=== PATIENT | female | born 1960 | race Two or more races ===

== ENCOUNTER 2019-07-31 17:20 | Emergency (ER) | payer MEDICAID ==
[~2019-07-31] VITALS: Ht 165.1 cm; Wt 78.9 kg
[~2019-07-31 17:20] MED LIST: ALBUAER3 IN; ATEN-60 PO; LEVO500T21 PO
[2019-07-31 17:40] VITALS: BP 171/75
[2019-07-31] MEDS ORDERED: ACETAMINOPHEN 325 MG TAB PO ONE (19:30)
== END 2019-07-31 21:45 | disposition home or self-care (01) ==
LOC: ER 17:20
DX: S99.922A Unspecified injury of left foot, initial encounter (principal); S39.92XA Unspecified injury of lower back, initial encounter; M25.511 Pain in right shoulder; I10 Essential (primary) hypertension; E78.5 Hyperlipidemia, unspecified; K21.9 Gastro-esophageal reflux disease without esophagitis; Z79.899 Other long term (current) drug therapy; X58.XXXA Exposure to other specified factors, initial encounter; Y93.89 Activity, other specified; Y92.89 Other specified places as the place of occurrence of the external cause; Y99.8 Other external cause status
CPT/HCPCS: 73030; 73610; 73630

== ENCOUNTER 2020-12-13 10:18 | Emergency (ER) | payer MEDICAID ==
[~2020-12-13] VITALS: Ht 165.1 cm; Wt 74.8 kg
[~2020-12-13 10:18] MED LIST changes: -LEVO500T21 PO; +LEVO500T31 PO
[2020-12-13 10:58] LABS: Basophils # (auto) 0 10 ^3/uL (0-0.2); Basophils % (auto) 0.6 % (0.0-2.0); Eosinophils # (auto) 0 10 ^3/uL (0-0.8); Lymphocytes # (auto) 1.8 10 ^3/uL (0.4-5.4)
[2020-12-13 10:59] LABS: Hematocrit 36.5 % (36.0-46.0); Hemoglobin 11.3 g/dL (12.2-16.2); Lymphocytes % (auto) 24.3 % (10.0-50.0); Mean Corpuscular Hemoglobin 20.8 pg (28.0-32.0); Mean Corpuscular Volume 67.1 fL (80.0-100.0); Monocytes # (auto) 0.4 10 ^3/uL (0-1.3); Monocytes % (auto) 6.2 % (0.0-12.0); Neutrophils % (auto) 68.9 % (37.0-80.0); Nucleated Red Blood Cells % 0.2 %; Red Blood Cells 5.44 10^6/uL (4.0-5.20); Red Cell Distribution Width 17.9 % (11.8-14.3); White Blood Cell 7.2 10^3/uL (4.4-10.8)
[2020-12-13 11:17] LABS: Albumin 3.4 g/dL (3.4-5.0); Calcium 8.7 mg/dL (8.5-10.1); Potassium 3.3 mmol/L (3.5-5.1)
[2020-12-13 11:23] LABS: BUN/Creatinine Ratio 12.3; Bilirubin, Total 0.2 mg/dL (0.2-1.0); Total Protein 8.1 g/dL (6.4-8.2)
[2020-12-13 12:26] VITALS: BP 126/67
[2020-12-13] MEDS ORDERED: POTASSIUM CHL 20 Meq TABLET PO ONE (14:15)
[2020-12-13] MEDS ORDERED: ACETAMINOPHEN 325 MG TAB PO ONE (14:15)
== END 2020-12-13 15:55 | disposition home or self-care (01) ==
LOC: ER 10:18
DX: U07.1 COVID-19 (principal); J06.9 Acute upper respiratory infection, unspecified; E86.0 Dehydration; J45.909 Unspecified asthma, uncomplicated; K21.9 Gastro-esophageal reflux disease without esophagitis; E78.5 Hyperlipidemia, unspecified; I10 Essential (primary) hypertension; Z79.2 Long term (current) use of antibiotics; Z79.899 Other long term (current) drug therapy
CPT/HCPCS: 36415; 71046; 80053; 83880; 84484; 85025; 85379; 93005

== ENCOUNTER 2021-03-03 17:38 | Observation (INO) | payer MEDICAID ==
[~2021-03-03] VITALS: Ht 165.1 cm; Wt 70.7 kg
[2021-03-03 23:59] LABS: Basophils # (auto) 0.1 10 ^3/uL (0-0.2); Eosinophils # (auto) 0.1 10 ^3/uL (0-0.8); Hematocrit 37.6 % (36.0-46.0); Hemoglobin 11.9 g/dL (12.2-16.2)
[2021-03-04] LABS: Basophils % (auto) 0.7 % (0.0-2.0); Eosinophils % (auto) 0.6 % (0.0-7.0); Lymphocytes # (auto) 2.1 10 ^3/uL (0.4-5.4); Lymphocytes % (auto) 21.5 % (10.0-50.0); Mean Corpuscular Hemoglobin 23.2 pg (28.0-32.0); Mean Corpuscular Hgb Conc. 31.7 g/dL (32.0-36.0); Mean Corpuscular Volume 73.2 fL (80.0-100.0); Monocytes # (auto) 1.1 10 ^3/uL (0-1.3); Monocytes % (auto) 10.6 % (0.0-12.0); Neutrophils # (auto) 6.6 10 ^3/uL (1.6-8.6); Neutrophils % (auto) 66.6 % (37.0-80.0); Nucleated Red Blood Cells % 0.1 %; Red Blood Cells 5.13 10^6/uL (4.0-5.20)
[2021-03-04 00:18] LABS: Red Cell Distribution Width 22.1 % (11.8-14.3)
[2021-03-04 00:21] LABS: Albumin 3.4 g/dL (3.4-5.0); Calcium 8.8 mg/dL (8.5-10.1); Potassium 3.5 mmol/L (3.5-5.1)
[2021-03-04 00:27] LABS: BUN/Creatinine Ratio 19.3; Bilirubin, Total 0.3 mg/dL (0.2-1.0); Total Protein 7.9 g/dL (6.4-8.2)
[2021-03-04] MEDS ORDERED: ASPirin 325 MG TAB PO ONE (01:15)
[2021-03-04] MEDS ORDERED: SODIUM CHLORIDE 0.9% 1,000 ML IV ONE (04:15)
[2021-03-04] MEDS ORDERED: NITROGLYCERIN 0.4 MG SL TAB SL PRN (04:15)
[2021-03-04] MEDS ORDERED: ONDANSETRON HCL 4 MG/2 ML VIAL IV PRN (04:15)
[2021-03-04] MEDS ORDERED: ALBUTEROL SULF 2.5 MG/0.5ML(0.5%) NEB SOLN NEB PRN (04:15)
[2021-03-04 04:22] LABS: Urine Bacteria FEW /hpf (None Seen); Urine Blood TRACE /uL (Negative); Urine Hyaline Cast FEW /lpf (0 - 2); Urine Mucus FEW (None Seen); Urine WBC 13 /hpf (0 - 5)
[2021-03-04] MEDS: MORPHINE SULFATE INJECTION 2 MG/ML SYRG IV PRN ×2 (04:33→10:31)
[2021-03-04 05:16] LABS: Calcium 8.7 mg/dL (8.5-10.1); Potassium 3.7 mmol/L (3.5-5.1)
[2021-03-04 05:21] LABS: BUN/Creatinine Ratio 20.8
[2021-03-04] MEDS ORDERED: ENOXAPARIN SOD 40 MG/0.4 ML SYRINGE SC SCH (10:00)
[2021-03-04 17:51] VITALS: BP 138/95
[2021-03-04] MEDS ORDERED: HYDROcodone-ACET 5/325MG TAB PO PRN (18:00)
[2021-03-04] MEDS ORDERED: ACETAMINOPHEN 325 MG TAB PO PRN (18:00)
[2021-03-04] MEDS ORDERED: ATORVASTATIN 20 MG TAB PO SCH (22:00)
== END 2021-03-04 21:05 | disposition home or self-care (01) ==
LOC: ER 17:38 → TELE 03-04 04:12 → TELE-WESTW 03-04 16:35
PROVIDERS: ADMIT Hospitalist; ATTEND Hospitalist
DX: R07.89 Other chest pain (principal); Z20.822 Contact with and (suspected) exposure to COVID-19; R11.2 Nausea with vomiting, unspecified; R10.9 Unspecified abdominal pain; I10 Essential (primary) hypertension; J45.909 Unspecified asthma, uncomplicated; K21.9 Gastro-esophageal reflux disease without esophagitis; E78.5 Hyperlipidemia, unspecified; Z79.899 Other long term (current) drug therapy
CPT/HCPCS: 36415; 71045; 80048; 80053; 80061; 81001; 83880; 84484; 85025; 87426; 93005; 93306; 96361; 96372; 96374; 96375; 96376; 99285; G0378; J1650; J2270; J2405; J7030

== ENCOUNTER 2021-07-12 01:20 | Emergency (ER) | payer OTHER, MEDICAID ==
[~2021-07-12] VITALS: Ht 165.1 cm; Wt 71.7 kg
[2021-07-12 01:20] VITALS: BP 144/79
[~2021-07-12 01:20] MED LIST changes: -LEVO500T31 PO
[2021-07-12] MEDS ORDERED: KETOROLAC TROMETH 60MG/2ML VIAL IM ONE (04:00)
[2021-07-12] MEDS ORDERED: AMOX250C3 PO (04:43)
== END 2021-07-12 04:44 | disposition left against medical advice (07) ==
LOC: ER 01:20
DX: R51.9 Headache, unspecified (principal); J32.9 Chronic sinusitis, unspecified; I10 Essential (primary) hypertension; E78.5 Hyperlipidemia, unspecified; Z98.51 Tubal ligation status; Z88.6 Allergy status to analgesic agent; Z53.29 Procedure and treatment not carried out because of patient's decision for other reasons
CPT/HCPCS: 70450